=== PATIENT | female | born 1945 | race Caucasian/White ===

== ENCOUNTER 2020-03-17 10:33 | Emergency (ER) | payer MEDICARE ==
[~2020-03-17] VITALS: Ht 152.4 cm; Wt 72.6 kg
[2020-03-17] MEDS ORDERED: BENICAR40 MG ORAL (10:43)
[2020-03-17] MEDS ORDERED: LEVOTHYROXINE125 MCG ORAL (10:43)
[2020-03-17] MEDS ORDERED: KLONOPIN1 MG ORAL (10:43)
[2020-03-17] MEDS ORDERED: CELEXA20 MG ORAL (10:43)
[2020-03-17] MEDS ORDERED: OMEPRAZOLE40 M1 ORAL (10:43)
[2020-03-17] MEDS ORDERED: TRAZODONE HCL100 MG ORAL (10:43)
[2020-03-17] MEDS ORDERED: BUPROPION XL300 MG ORAL (10:43)
[2020-03-17] MEDS ORDERED: MECLIZINE HCL25 MG ORAL (10:43)
--- NOTE | 2020-03-17 10:50 | NUR ---
ED Nurse Note: Pt BIBA for generalized weakness and dizziness for 2 days. Pt fell 2 days ago and has had weakness since. Pt states she has not eaten since the fall, and has been urinating and having BMs in bed. Pt is alert and ox4, awak, calm. Denies pain. Bruises on bilateral arms and legs. No facial droop.
--- NOTE | 2020-03-17 10:52 | Emergency Room Report ---
History of Present Illness General Chief Complaint: Generalized Weakness Source: Patient Present Illness HPI Patient is a 74-year-old female with past medical history of hypothyroidism, hypertension, dyslipidemia, constipation who presents with complaint of generalized weakness for the last 2 days. Also endorses suprapubic abdominal pain, constipation. Cannot remember if she had dysuria or hematuria. Denies flank pain, fever, chest pain, shortness of breath, nausea, vomiting, diarrhea. Patient states that she has been unable to take care of her self for the last 2 days and she lives by herself which is why she called the paramedics today. Denies recent travel, ill contacts, or COVID exposures. The patient's symptoms were gradual onset, severity was moderate, duration since 2 days. Quality: Generally weak. Denies focal deficits, headache, neck pain, rash Past medical history: Hypothyroidism, hypertension, dyslipidemia Past surgical history: She cannot remember Smoking: Denies Alcohol use: Denies Drug use: Denies Review of systems: CONST: No fevers or chills, No night sweats PULMONARY: No productive cough, No shortness of breath CARDIAC: No chest pain, No palpitations GI: No vomiting, No diarrhea , No melena_or_BRBPR : No dysuria, No hematuria, No discharge NEURO: No new_focal_weakness_or_numbness, No confusion, No vision changes 14 point Review of Systems is otherwise negative except per HPI Physical Exam: GENERAL: Awake_alert_ nontoxic, no acute distress Spo2 90% on RA -normal EYES: Extraocular muscles are intact. Conjunctivae clear. Lids without swelling. Dry mucous membranes. ENT: External nose and ear normal_in_appearance. Oropharynx clear. Head_ atraumatic, Moist_oral_mucosa NECK: No JVD. No meningismus. No thyromegaly. Supple. Trachea midline RESP: Normal respiratory effort. Symmetric rise. No stridor. Clear_to_ auscultation_No_rales_No_wheezes CARDIAC: Regular rate and regular rhytm. No_significant pedal edema. ABDOMEN: Soft. Nondistended. No_rebound_or_guarding. No Rivera's. Negative Rovsing's. Negative obturator. Mild tenderness to palpation of suprapubic abdomen MSK: Normal muscle tone, without rigidity. Extremities without asymmetric deformity or swelling. R forearm ecchymosis SKIN: Warm and dry. No visible cyanosis or pallor NEUROLOGIC: Alert, oriented x3. Motor_and_sensation_grossly_intact. No truncal ataxia. Gait_normal Psych: Normal mood and affect, normal judgment and insight - COORDINATION OF CARE Case was discussed with: Patient , Patient's Physician Any labs and imaging that were ordered were interpreted as part of the medical decision making: Medical Decision Making/Plan: Differential diagnosis for the patients symptoms include , malignant arrhythmias, obstructive heart disease (critical aortic stenosis, hypertrophic cardiomyopathy), acute anemia, severe dehydration, electrolyte abnormalities, among others. Patient's exam shows she is generally weak but no focal neurologic deficits. She is afebrile. Blood pressure is stable. She does have right forearm ecchymosis but this looks chronic. There are no skin tears or lacerations. No deformities of the bone. EKG showsn normal sinus rhythm. No signs of malignant arrhythmia such as Brugada syndrome, delta wave, epsilon wave, significant heart block, or QTc > 500. CXR shows perihilar pneumonia. Labs otherwise show JOSE. No baseline creatinine. Creatinine today is 2.7. BUN/ Cr > 20, therefore likely pre-renal Patient looks hypovolemic on examination with dry mucous membranes, skin tenting , and lethargy. Will give IVFs and reassess CMP. Lipase was also found to be elevated. No transaminitis. Doubt gallstone pancreatitis. Troponin is negativex1. COVID negative CT head negative for ICH CT abdomen shows SBO and enteritis. Will place NG tube for gastric decompression. The patient denies any external blood loss and has no significant pallor or evidence of acute anemia as a cause of their symptoms. She is unstable on her feet. Likely chronic deconditioning. Doubt cerebellar stroke. Hemoglobin is not severely low, and acute blood transfusion is not indicated. In addition, the patient has no loud murmur or evidence of significant obstructive heart disease, symptoms are not in the setting of exertion. The patient is neurologically intact, with normal cerebellar exam, without any evidence of central vertigo as a cause of their symptoms. I spoke with Dr. Muller, and reviewed the patients presentation, workup, results, and treatment. Patient is capitated to [facility]. Stable for transfer. They will admit the patient for further care and evaluation, and assume care of the patient at this time. Allergies: Coded Allergies: No Known Allergies (Unverified , 03/17/20) COVID-19 Screening Contact w/high risk pt: No Experienced COVID-19 symptoms?: No COVID-19 Testing performed CAP MAKER: No Nursing Documentation-PMH Past Medical History: No History, Except For Hx Hypertension: Yes History Of Psychiatric Problem: Yes Physical Exam Vital Signs Date Time Temp Pulse Resp B/P (MAP) Pulse Ox O2 Delivery O2 Flow Rate FiO2 03/17/20 10:33 97.7 98 16 113/45 (67) 98 Room Air Sp02 EP Interpretation: reviewed, normal Medical Decision Making Diagnostic Impression: Primary Impression: Episode of generalized weakness Additional Impressions: Renal failure Dehydration Abdominal pain Pancreatitis SBO (small bowel obstruction) Enteritis EKG Diagnostic Results ANJU Sanches 12-lead EKG (interpreted by me) Time: 1104 Indication: Rhythm analysis Tracing visualized and Interpreted by me. Rhythm: Normal sinus rhythm Rate: 87 bpm QTc: 469 Morphology: No_significant_ST_elevations_or_depressions, No STEMI Impression: Normal_sinus_rhythm_without_significant_abnormality Rhythm Strip Diag. Results Rhythm Strip Time: 10:52 EP Interpretation: yes Rate: 96 Rhythm: NSR, no PVC's, no ectopy Chest X-Ray Diagnostic Results Chest X-Ray Diagnostic Results : ANJU Sanches Chest X-Ray: Views: 1 view(s) Indication: Generalized weakness Findings: CM. Mediastinum normal. No effusion Impression: Perihilar pneumonia The X-ray(s) were independently viewed and interpreted contemporaneously Electronically signed by Priti bingham DO CT/MRI/US Diagnostic Results CT/MRI/US Diagnostic Results : Impression CT Head no Contrast Indications: Headache Impression: Chronic and age-related changes. Negative for acute intracranial bleed or mass effect CT abd/pelvis Impression: SBO, enteritis, no free air. Reevaluation Time: 12:03 Last Vital Signs Date Time Temp Pulse Resp B/P (MAP) Pulse Ox O2 Delivery O2 Flow Rate FiO2 03/17/20 10:33 97.7 98 16 113/45 (67) 98 Room Air Status: improved Disposition: ADMITTED INPATIENT - [facility] Pres Admit Decision Time: 12:05 Condition: Stable Priti Hewitt D.O. Mar 17, 2020 10:52
[2020-03-17 10:55] VITALS: BP 116/54
--- NOTE | 2020-03-17 11:00 | NUR ---
ED Nurse Note: Blood and COVID sent to lab.
[2020-03-17 11:14] LABS: BASOPHILS % (AUTO) 2.1 % (0.0-2.0); EOSINOPHILS % (AUTO) 1.5 % (0.0-3.0); HEMATOCRIT 38.2 % (37.0-47.0); HEMOGLOBIN 12.5 G/DL (12.0-16.0); LYMPHOCYTES % (AUTO) 6.7 % (20.0-45.0); MEAN CORPUSCULAR VOLUME 92 FL (80-99); MONOCYTES % (AUTO) 12.3 % (1.0-10.0); NEUTROPHILS % (AUTO) 77.4 % (45.0-75.0); PLATELET COUNT 249 K/UL (150-450); RED BLOOD COUNT 4.15 M/UL (4.20-5.40); RED CELL DISTRIBUTION WIDTH 11.3 % (11.6-14.8); WHITE BLOOD COUNT 8.5 K/UL (4.8-10.8)
[2020-03-17] MEDS ORDERED: Pantoprazole Inj IVP ONE (11:15)
[2020-03-17] MEDS ORDERED: cefTRIAXone 1 GM in NS 55 ML IVPB ONE (11:15)
--- NOTE | 2020-03-17 11:15 | NUR ---
ED Nurse Note:Ifeanyi Gutierrez son [phone]
[2020-03-17 11:28] LABS: ANION GAP 13 mmol/L (5-15); BLOOD UREA NITROGEN 104 mg/dL (7-18); CALCIUM 9.5 MG/DL (8.5-10.1); CARBON DIOXIDE 23 MMOL/L (21-32); CHLORIDE 98 MMOL/L (98-107); CREATININE 2.7 MG/DL (0.55-1.30); POTASSIUM 4.7 MMOL/L (3.5-5.1); SODIUM 134 MMOL/L (136-145)
[2020-03-17 11:42] LABS: ALANINE AMINOTRANSFERASE 23 U/L (12-78); ALBUMIN 2.2 G/DL (3.4-5.0); ALBUMIN/GLOBULIN RATIO 0.4 (1.0-2.7); ALKALINE PHOSPHATASE 60 U/L (46-116); ASPARTATE AMINO TRANSFERASE 27 U/L (15-37); BILIRUBIN,TOTAL 2.9 MG/DL (0.2-1.0); CREATINE KINASE 188 U/L (26-308)
[2020-03-17 11:44] LABS: BILIRUBIN,DIRECT 1.6 MG/DL (0.0-0.3)
--- NOTE | 2020-03-17 12:00 | NUR ---
ED Nurse Note: Dr Hewitt states she wants F/C for patient. F/C inserted 1200 18g, patent/draining.
--- NOTE | 2020-03-17 12:06 | Diagnostic Imaging Report ---
Indications: Headache Technique: Spiral acquisitions obtained through the brain. Angled axial and coronal 5 x 5 mm slices were reconstructed. Total dose length product 1018 mGycm. CTDI vol(s) 53 mGy. Dose reduction achieved using automated exposure control Comparison: None. Findings: There is age-related enlargement of the ventricles and extra axial CSF spaces. There is some periventricular deep white matter low-attenuation, consistent with chronic microvascular ischemic change. Visualized orbits are unremarkable. There is normal moon-white differentiation. The visualized sinuses are clear. The mastoids are clear. The calvarium is intact Impression: Chronic and age-related changes. Negative for acute intracranial bleed or mass effect The CT scanner at [facility] is accredited by the [employer] and the scans are performed using protocols designed to limit radiation exposure to as low as reasonably achievable to attain images of sufficient resolution adequate for diagnostic evaluation.
[2020-03-17] MEDS ORDERED: Azithromycin 500 MG in NS 275 ML IV ONE (12:15)
--- NOTE | 2020-03-17 12:19 | Diagnostic Imaging Report ---
Indication: Suprapubic abdominal pain and constipation Technique: Spiral acquisitions obtained through the abdomen and pelvis. No oral contrast utilized, per emergency room physician request No IV contrast utilized, per emergency room physician request.. Multiplanar reconstructions were generated. Total dose length product 476 mGycm. CTDIvol(s) 8.3 mGy. Dose reduction achieved using automated exposure control Comparison: None Findings: Lack of enteric contrast limits assessment of the GI tract. There are diffusely dilated fluid-filled small bowel loops. There is a transition point to normal caliber small bowel in the right lower quadrant, images 100 through 108 of series 4. There is questionable mild wall thickening of the terminal ileum. There is very slight inflammation of the fat around the distal ileum distal to the transition point. A small amount of free fluid is seen within the pelvis. The dilated small bowel does not appear to be thick-walled, however. There are colonic diverticula. No evidence of diverticulitis. The appendix is not definitely demonstrated, but no findings to suggest acute appendicitis are evident. No free intraperitoneal gas. There is a hiatal hernia demonstrated. There is some fluid within the fat within the hiatal hernia. Lack of IV contrast limits assessment of the solid organs. The liver, gallbladder, bile ducts, pancreas, spleen, adrenals are unremarkable. Multiple calculi are seen in the renal collecting systems bilaterally, more numerous and larger on the left than on the right. There is mild fullness to the right renal collecting system, but no evidence of ureteral calculus or hydroureter is demonstrated. Small subcentimeter hyperdense focus is seen in the periphery of the left kidney. Small subcentimeter low-attenuation lesions are also seen in the periphery of the left kidney. No retroperitoneal or mesenteric mass or adenopathy. Normal uterus and adnexal structures. No pelvic mass or adenopathy. There is trace pleural fluid on the left. The included lung bases are otherwise clear. The bones demonstrate degenerative spondylosis changes and lumbar levoscoliotic deformity. Impression: Evidence of small bowel obstruction, with transition point in the right lower quadrant at the level of the distal ileum. Possible mild enteritis changes of the distal ileum Small amount of free pelvic fluid, likely related to the above Colonic diverticulosis Nonobstructive intrarenal calculi Subcentimeter hyperdense focus in the periphery left kidney, probably hyperdense proteinaceous cysts. Hypoattenuating subcentimeter renal lesions probably represent small cysts. Small to moderate hiatal hernia. Some fluid is seen within the herniated fat. Trace left pleural effusion Incidental finding of degenerative spondylosis and scoliosis Critical value findings discussed by phone with Dr. Hewitt at the time of interpretation The CT scanner at [facility] is accredited by the [employer] and the scans are performed using protocols designed to limit radiation exposure to as low as reasonably achievable to attain images of sufficient resolution adequate for diagnostic evaluation.
--- NOTE | 2020-03-17 13:12 | NUR ---
ED Nurse Note: Doyle Clarke [phone]
--- NOTE | 2020-03-17 13:30 | NUR ---
ED Nurse Note: NG salem sump tube placed at 69. ERMD notified and will order XR for placement.
[2020-03-17 13:50] VITALS: BP 120/61
--- NOTE | 2020-03-17 14:00 | NUR ---
ED Nurse Note: ERMD notified that NG tube was coiled by XR tech and states to removed NG tube and not place new NG tube for now.
[2020-03-17 15:47] LABS: BILIRUBIN, URINE 1+ (NEGATIVE); GLUCOSE, URINE (UA) NEGATIVE (NEGATIVE); KETONES,URINE 1+ (NEGATIVE); LEUKOCYTE ESTERASE ,URINE NEGATIVE (NEGATIVE); NITRITE,URINE NEGATIVE (NEGATIVE); PH,URINE 5 (4.5-8.0); PROTEIN,URINE NEGATIVE (NEGATIVE); UROBILINOGEN,URINE 4 MG/DL (0.0-1.0)
[2020-03-17 15:53] LABS: COLOR,URINE YELLOW
[2020-03-17 15:59] LABS: APPEARANCE,URINE SLIGHTLY CLOUDY
[2020-03-17 16:07] VITALS: BP 126/65
--- NOTE | 2020-03-17 16:40 | Diagnostic Imaging Report ---
Indication: Cough Technique: One view of the chest Comparison: none Findings: There is elevation left hemidiaphragm. Lungs and pleural spaces are otherwise clear. The heart size is normal. Impression: No definite acute process
--- NOTE | 2020-03-17 17:08 | Diagnostic Imaging Report ---
Indication: Post nasogastric tube placement Technique: Supine view of the abdomen Comparison: Reference made to abdomen pelvis CT of 2 hours earlier Findings: There is a nasogastric tube in place, a hairpin loop in the distal esophagus, tip pointed cephalad beyond the edge of the image. Dilated small bowel loops are noted. Impression: Malpositioned nasogastric tube. Dr. Goodrich aware Dilated small bowel loops, consistent with previously described small bowel obstruction
--- NOTE | 2020-03-17 17:17 | NUR ---
ED Nurse Note: Report given to Eileen Carlton
--- NOTE | 2020-03-17 18:10 | NUR ---
ED Nurse Note: Pt transferred to [facility] by ambulance. Pt is alert and ox4, weak. No acute distress. VSS. Ambulance took all belongings.
[2020-03-17 18:11] VITALS: BP 120/68
[2020-03-17 18:12] VITALS: BP 128/79
== END 2020-03-17 18:22 | disposition other institution (70) ==
LOC: EDBD 10:33 → EMR 10:50 → EDBEDREQ 10:57 → EMR 18:22
DX: R53.1 Weakness (principal); N19 Unspecified kidney failure; E86.0 Dehydration; R10.9 Unspecified abdominal pain; K85.90 Acute pancreatitis without necrosis or infection, unspecified; K56.609 Unspecified intestinal obstruction, unspecified as to partial versus complete obstruction; K52.9 Noninfective gastroenteritis and colitis, unspecified; I10 Essential (primary) hypertension
CPT/HCPCS: 36415; 70450; 71045; 74018; 74176; 80053; 81003; 82248; 82550; 83690; 83880; 84439; 84443; 84481; 84484; 85025; 86850; 86900; 86901; 87040; 87086; 93005; 96365; 96367; 96375; 99285; C9113; J0456; J0696; J1100; J7050; U0002